=== PATIENT | male | born 1945 | race Native Hawaiian/Other Pacific Islander ===

== ENCOUNTER 2016-11-29 07:41 | Outpatient (CLI) | payer OTHER ==
[~2016-11-29] VITALS: Ht 185.4 cm; Wt 108.0 kg
[~2016-11-29 07:41] MED LIST: ATEN50TA36 PO; SIMV20TA2 PO; TAMSULOSIN0.4 MG PO; TRIA37.541 PO
== END 2016-11-29 23:30 | disposition home or self-care (01) ==
LOC: NM 07:41
DX: Z01.810 Encounter for preprocedural cardiovascular examination (principal)
CPT/HCPCS: A9500; J2785

== ENCOUNTER 2017-10-11 13:11 | Outpatient (CLI) | payer OTHER | END 2017-10-11 21:17 | disposition home or self-care (01) | LOC: RAD 13:11 | DX: R05 Cough (principal) ==